=== PATIENT | male | born 1985 | race African-American/Black ===

== ENCOUNTER 2023-11-24 18:19 | Emergency (ER) | payer MEDICAID ==
[~2023-11-24] VITALS: Ht 172.7 cm; Wt 70.0 kg
[2023-11-24 18:34] VITALS: BP 148/100; PULSE 120; RESP 16; TEMP 98.7; O2SAT 98
== END 2023-11-24 19:30 | disposition left against medical advice (07) ==
LOC: ER 18:19
DX: S50.12XA Contusion of left forearm, initial encounter (principal); S09.90XA Unspecified injury of head, initial encounter; R56.9 Unspecified convulsions; Y08.89XA Assault by other specified means, initial encounter; Y93.89 Activity, other specified; Y92.89 Other specified places as the place of occurrence of the external cause; Y99.8 Other external cause status
CPT/HCPCS: 73090; 99283